=== PATIENT | male | born 1970 | race Caucasian/White ===

== ENCOUNTER 2023-03-13 14:18 | Outpatient (CLI) | payer BC, SELFPAY ==
[2023-03-13 17:53] LABS: Absolute Neutrophil Count 3.6 X10^3/uL (2.0-7.7); Basophil# 0.03 X10^3/uL; Basophil% 0.4 % (0-1); Eosinophil# 0.34 X10^3/uL; Eosinophils% 4.9 % (0-5); Hematocrit 44.5 % (40-54); Hemoglobin 14.6 g/dL (13.0-16.5); Mean Corp Hgb Conc 32.8 g/dL (32-36); Mean Corpuscular Hgb 29.9 pg (27.0-32.0); Mean Platelet Vol. 10.6 fl (6.2-12.0); Monocyte# 0.87 X10^3/uL; Monocyte% 12.4 % (0-10); NRBC Flagged by Analyzer 0 % (0-5); Neutrophil # 3.64 X10^3/uL (2.7-7.7); Neutrophil % 51.9 % (47-70); Platelet Count 211 K/mm3 (150-450); RBC Distribution Width CV 13.2 % (11.6-14.6); RBC Distribution Width SD 44.2 fl (35.1-43.9); Red Blood Count 4.89 M/mm3 (4.6-6.2)
[2023-03-13 18:21] LABS: ALB/GLOB Ratio 0.8 RATIO (0.9-2.4); AST(SGOT) 62 U/L (15-37); Alanine Aminotransfer ALT/SGPT 117 U/L (16-61); Albumin, Serum 3.5 g/dL (3.2-5.0); Alkaline Phosphatase 137 U/L (45-117); Anion Gap 4 (5-15); BUN 15 mg/dL (7-18); BUN/Creat Ratio 15.6 RATIO (10-20); Calcium,Total 9.1 mg/dL (8.5-10.1); Chloride 108 mmol/L (98-107); Cholesterol 203 mg/dL (200); Creatinine, Serum 0.96 mg/dL (0.70-1.30); EST Glomerular Filtration Rate 86 mL/min (>60); Est Glom Filt Rate - Afr Amer 104 mL/min (>60); Globulin 4.2 g/dL (2.2-4.2); Glucose 107 mg/dL (74-106); High Density Lipoprotein 30 mg/dL; Potassium 3.9 mmol/L (3.5-5.1); Protein, Total 7.7 g/dL (6.4-8.2); Sodium Level 138 mmol/L (136-145); Thyroid Stim Hormone (TSH) 2.14 uIU/mL (0.358-3.74); Triglycerides 425 mg/dL
== END 2023-03-13 23:59 | disposition home or self-care (01) ==
LOC: MFPLAB 14:21
PROVIDERS: PCP Family Medicine; Visit Provider Family Medicine
DX: Z00.00 Encounter for general adult medical examination without abnormal findings (principal); Z13.220 Encounter for screening for lipoid disorders; I16.0 Hypertensive urgency
CPT/HCPCS: 36415; 80053; 80061; 84443; 85025

== ENCOUNTER → 2023-04-24 | Outpatient (CLI) | payer BC, SELFPAY | END | disposition home or self-care (01) | PROVIDERS: PCP Family Medicine; Referring Provider Surgery; Visit Provider Surgery | DX: Z01.818 Encounter for other preprocedural examination (principal) | CPT/HCPCS: 87081 ==

== ENCOUNTER 2023-06-01 05:53 | Day surgery (SDC) | payer BC, SELFPAY ==
[2023-06-01 06:24] VITALS: BP 135/76; PULSE 66; RESP 20; TEMP 36.6; O2SAT 97; BMI 36.5
[2023-06-01] MEDS: Lactated Ringers 1,000 ML 15 ML IV ×2 (06:41→11:47)
--- NOTE | 2023-06-01 07:57 | HP.PCM_ITS ---
History and Physical Date of Admission: 06/01/23 Date of Service: 04/24/23 MR#: [id number] Acct: [id number] Name: GELACIO CHILDRESS Rep #: [id number] : 1970 Provider: Dr. Johnny Bishop MD Age/Sex: 53/M Location: [facility] Status: Signed Intake Vital Signs 04/24/2313:39 Weight: 282 lb 2 oz BP 134/86 H Blood Pressure Location Rt brachial Position Sitting Respiration 16 Pulse 77 Pulse Source Monitor Pulse Oximetry (%) 96 Oxygen Delivery Method room air Intake Visit Reasons: UMBILICAL HERNIA Chief Complaint: umbilical hernia Allergies bee venom protein (honey bee) Allergy (Severe, Verified 04/24/23 13:40) Anaphylaxis Medications lisinopril 30 mg tablet 30 mg PO DAILY 04/24/23 [History Confirmed 04/24/23] HPI HPI HPI: Patient is a 53-year-old male who presents for umbilical hernia. He is referred from Dr. Munroe. This finding was first noticed by patient approximately 1 month ago. Patient is not able to recall how this occurred. Symptoms include: Some tenderness and bulging (growth). Mr. 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 He also denies any difficulty with eating. 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 Patient has a personal history of smoking, but reports that he underwent smoking cessation last May. He estimates a prior smoking history of 20 years at half pack per day. Patient has no personal history of recurrent cutaneous infections including staph. Mr. Childress confirms that his weight has been stable and confesses that his diet is not the healthiest. He is trying with his to increase his activity level by walking their dog more regularly. Pertinent surgical history includes: No abdominal surgeries ROS General General: Yes fatigue; No weight change, appetite, colon cancer, breast cancer or weakness HEENT HEENT: No difficulty swallowing, eye injury, eye surgery, swollen glands or hoarseness Endo Endocrine: No thyroid disease, diabetes mellitus, thyroid cancer, Hair loss, heat intolerance or cold intolerance Skin Skin: No rash or changing moles Breast Breast: No left breast lump, right breast lump, nipple discharge, breast pain, abnormal mammogram, abnormal US or breast enlargement Musc Musculoskeletal: No back problems, arthritis, rheumatoid arthritis, gout or joint pain Cardio Cardiovascular: Yes high blood pressure; No murmur, pacemaker, heart disease, atrial fibrillation, heart attack, heart stent, palpitations, shortness of breat with exertion or chest pain Psych Psychiatric: No depression, anxiety or hearing voices Resp Respiratory: No shortness of breath, No sleep apnea, No cough, No COPD, No asthma, No emphysema and No wheezing Gastro Gastrointestinal: No abdominal pain, No nausea or vomiting, No diarrhea, No constipation, No blood in stool, No acid reflux, No hemorrhoids, No ulcers, No gallbladder problem and No black,tarry stools Mark Hematologic: No blood thinners, No blood disorders, No bleeding, No anemia and No blood clots Neuro Neurologic: No system reviewed and no additional complaints, except as documented, No as per HPI, No abnormal gait, No abnormal hearing, No abnormal movements, No abnormal speech, No behavioral changes, No burning sensations, No confusion, No convulsions, No disequilibrium, No dizziness, No localized weakness, No frequent falls, No headache(s), No lack of coordination, No loss of vision, No memory loss, No numbness, No other visual disturbances, No radicular pain, No restless legs, No sensory deficit, No syncope, No tingling, No tremor(s), No weakness and No other Exam Const General: cooperative, healthy appearing, comfortable and no acute distress Nutritional Appearance: obese Resp Effort & Inspection: normal respiratory effort GI Other: Obese, no scars, clearly evident umbilical hernia with some thinning of the skin and pinkish discoloration. Hernia clearly contains fat contents which are tender with significant palpation, but the hernia is ultimately reducible to an approximately 3 cm fascial defect. Assessment and Plan Assessment and Plan (1) Umbilical hernia without obstruction and without gangrene: Status: Acute Comment: This is a 53-year-old male who presents for evaluation of a recently diagnosed umbilical hernia. He is unable to recall how this hernia occurred. He has noticed both tenderness and growth with this hernia. At the current fascial defect size of approximately 3 cm, I have shared with him that I am concerned it could be at risk for bowel entrapment. Therefore, based on his notice of some increased tenderness, growth, and this possibility I do recommend proceeding with operative repair. I have informed him that his higher BMI does put him at some risk for recurrence, but because of this would recommend wider coverage with mesh. Based on this assessment, I am recommending minimally invasive hernia repair with mesh. Operation was described in detail along with the restrictions postoperatively. We held a brief discussion around the safety of the use of mesh for this operation. 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 Mr. Childress relates that he and his plan to be on vacation next month and wish to know whether it is safe to postpone this hernia repair until after their vacation. I have shared with him that this should be fine, but have provided red flag symptoms that would prompt him to present for emergent evaluation wherever he may find himself. Mr. Childress expresses understanding of this information and we resolved to plan for a hernia repair date in early May. Plan: ? Robot-assisted umbilical hernia repair with mesh early May ? MRSA swab of the nares now I have examined the patient and the H&P has been reviewed. There are no clinical changes since date of exam. Procedure and post procedure expectations were reviewed. Specifically we discussed postoperative activity restrictions and management of postoperative wounds. Neither patient nor spouse have any further questions. Therefore we will proceed to the operating room for planned robot- assisted umbilical hernia repair with mesh as discussed above.
[2023-06-01] MEDS: Cefazolin 3 GM in 0.9% Normal Saline (100mL Bag) 100 ML IV (08:14)
--- NOTE | 2023-06-01 10:43 | PCM.OPRPT ---
Report of Operation Date of Procedure: 06/01/23 Pre-Operative Diagnosis: Umbilical hernia containing incarcerated fat Post-Operative Diagnosis: Same Surgery/Procedure Performed:: Robot-assisted transabdominal preperitoneal umbilical hernia repair with mesh Surgeon: Johnny Bishop wrecking mechanic: Bennie Vazquez Type of Anesthesia: General/Supplemental Anesthesiologist: Ivan Dorsey Specimen's removed: none Estimated Blood Loss (mL): 10 Description of Procedure: After appropriate identification in the preoperative holding area, the patient was brought to the operating room suite where he was positioned supine the operating table. Preoperative antibiotics were administered. Patient was then induced with a general anesthetic. Patient's abdomen was prepped and draped in the usual sterile fashion. A formal timeout followed to confirm patient and procedure. Procedure was begun with a Veress entry at Ashraf's point. Once the set point pressure was reached, this Veress needle was exchanged for an optical trocar and an optical entry was made in this location. Laparoscopic investigation revealed no inadvertent injury to the viscera below. 2 additional 8 mm robotic trochars were placed along the abdominal wall laterally, taking care to avoid the bony prominences of the costal margin and the ASIS. A transversus abdominis plane block was created with 100 mL (mixed 60 mL saline, 20 mL Exparel, 20 mL Marcaine) under laparoscopic vision as these ports were placed. The robot was then brought in and docked in standard fashion. Robotically a peritoneal flap was raised approximately 2 cm medial from my trocars and carried this away towards the contralateral abdominal wall. Great care was taken to lower the peritoneum off of the posterior rectus sheath and avoid any rents in the peritoneal flap. Perforating vessels were sealed with bipolar energy to maintain hemostasis as this flap dissection proceeded. I then addressed the hernia directly by opening the scar tissue about the hernia sac and carefully applying manual traction downward until the hernia was fully reduced. The flap was then further dissected laterally until it appeared we had adequate width. The hernia defect (which measured just over 2 cm in diameter) was closed with a #1 stratafix suture by running the fascial defect closed and then running the suture back upon itself. Next a 10 x 12 cm ProGrip mesh was introduced into the peritoneum. A 3-0 Vicryl suture was used to loosely tack the mesh centrally and then into other locations to provide improved approximation to the abdominal wall. The mesh was fully pressed out to the abdominal wall and lastly the peritoneum was closed with a 2-0 V-Loc suture run in 2 directions. The robot was then undocked and the trocars were removed. Additional local anesthetic was instilled and the port sites were closed with interrupted 4-0 Monocryl in subcuticular fashion. Steri-Strips and OpSite dressings were applied. Patient was transferred to PACU for ongoing care. 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
[2023-06-01] MEDS: Bupivacaine 0.25% 30 ML Vial (10:51)
[2023-06-01] MEDS: BUPIVACAINE LIPOSOME/PF 20 ML VIAL OPERA.SITE (10:51)
[2023-06-01] MEDS: 0.9% Normal Saline (Pres. free 10 ML Vial (10:51)
--- NOTE | 2023-06-01 11:01 | EX.PCM.DISCH ---
Discharge Instructions Diet Discharge Diet: No restrictions Activity Discharge Activity: May Not Drive (While taking narcotic pain medication) and May Shower May shower in (days): 2 Ice area for (Minutes): 20 Lifting Restrictions: No lifting greater than 10 pounds for the next 5 weeks Dressing / Incision Call your doctor if your incision/area has: Continuous Slow Oozing, Increased Pain/ Swelling, Increased Redness, Foul Smelling Discharge and Swelling at the incision site Call your doctor if you observe: Fever of 101 or Higher, Inability to urinate and Inability to have a bowel movement Change Dressing in: 2 days (Please leave Steri-Strips intact until they fall off spontaneously or are taken off at your follow-up visit) Remove Dressing in: 2 days Cleanse incision/area with: Soap & Water and Keep Dressing Clean & Dry Follow Up Care Please Follow Up With: Johnny Bishop MD When: 1 week postop Test Results: Test results from this visit will be discussed in further detail at your follow-up appointment, if applicable. Discharge Plan Admission Primary Reason for Your Visit: Umbilical hernia repair Attending Provider: Johnny Bishop Primary Care Provider: Lisa Munroe Discharge Orders/Prescriptions Prescriptions: New oxycodone 5 mg tablet 5 mg PO Q6H PRN (Reason: pain) 3 Days Qty: 14 0RF Continued lisinopril 30 mg tablet 30 mg PO DAILY hydrochlorothiazide 25 mg tablet Patient Comments: Take 1 tablet by mouth daily lisinopril 40 mg tablet Patient Comments: Take 1 tablet by mouth daily Other Ambulatory Orders: 12 Lead EKG (Routine) Timeframe: [id number] Location: None Selected Ordered By: Dr. Abundio Gonsalez Referrals / Follow Up: Lisa Munroe MD [Primary Care Provider] - Disposition Disposition (needs filled in before D/C Order can be placed): Home, Self Care
[2023-06-01 11:11] VITALS: BP 135/76; PULSE 70; RESP 20; TEMP 36.4; O2SAT 92
[2023-06-01 11:15] VITALS: BP 113/49; BP 135/76; PULSE 72; RESP 16; O2SAT 94
[2023-06-01 11:30] VITALS: BP 135/76; BP 137/73; PULSE 71; RESP 14; O2SAT 94
[2023-06-01 11:45] VITALS: BP 114/66; BP 135/76; PULSE 64; RESP 16; TEMP 36.6; O2SAT 92
[2023-06-01] MEDS: oxyCODONE 5 MG Tablet PO (12:13)
[2023-06-01 12:34] VITALS: BP 135/76
== END 2023-06-01 12:51 | disposition home or self-care (01) ==
LOC: SDC 05:56 → AC 05:57
PROVIDERS: PCP Family Medicine; Referring Provider Surgery; Visit Provider Surgery
PROC: (CPT 49592; principal; 2023-06-01 07:40)
DX: K42.0 Umbilical hernia with obstruction, without gangrene (principal); I10 Essential (primary) hypertension; Z79.899 Other long term (current) drug therapy; Z87.891 Personal history of nicotine dependence
CPT/HCPCS: 49592; S2900; 00830; 93005; J7120; J2405; J3490

== ENCOUNTER → 2024-05-04 | Outpatient (CLI) | payer BC, SELFPAY ==
[2024-05-04 15:42] LABS: Hemoglobin A1c 12.3 % (3.8-5.6)
== END | disposition home or self-care (01) ==
LOC: MFPLAB 11:31
PROVIDERS: PCP Family Medicine; Visit Provider Family Medicine
DX: E11.65 Type 2 diabetes mellitus with hyperglycemia (principal)
CPT/HCPCS: 36415; 83036